=== PATIENT | female | born 1935 | race African-American/Black ===

== ENCOUNTER 2020-09-03 19:57 | Inpatient (IN) | payer MEDICAID, OTHER ==
[~2020-09-03] VITALS: Ht 152.4 cm; Wt 59.9 kg
[2020-09-03] MEDS ORDERED: SODIUM CHLORIDE 0.9% 1000ML BAG (SEPSIS BOLUS) IV ONE (20:30)
[2020-09-03 21:15] LABS: HEMATOCRIT. 35.4 % (36.0-48.0); HEMOGLOBIN. 11.5 g/dL (12.0-16.0); MEAN CORPUSCULAR HEMOGLOBIN 29.4 pg (28.0-32.0); MEAN CORPUSCULAR VOLUME 90.7 fL (81.0-99.0); MEAN PLATELET VOLUME 8.9 fl (7.4-10.4); PLATELET 250 x1000/uL (130-400); RED CELL DISTRIBUTION WIDTH 17.9 % (11.6-14.6)
[2020-09-03 21:20] LABS: CHLORIDE 109 mEq/L (98-107)
[2020-09-03 21:24] LABS: PROTHROMBIN TIME 11.2 sec (9.6-11.0)
[2020-09-03 21:43] LABS: PLATELET ESTIMATE NORMAL
[2020-09-03] MEDS ORDERED: PIPERACILLIN/TAZ 3.375G PREMIX 50 ML IV NR (22:00)
[2020-09-03] MEDS ORDERED: VANCOMYCIN 1 G PREMIX 200 ML IV NR (22:00)
[2020-09-03] MEDS ORDERED: ONDANSETRON HCL 4MG/2ML INJ IV PRN (23:00)
[2020-09-03] MEDS ORDERED: GUAIFENESIN 200MG/10ML SUGAR FREE UDC PO PRN (23:00)
[2020-09-03] MEDS ORDERED: DOCUSATE SODIUM 100MG CAPSULE PO PRN (23:00)
[2020-09-03] MEDS ORDERED: LORAZEPAM 2MG/ML CPJ IV PRN (23:00)
[2020-09-03] MEDS ORDERED: HYDROCODONE/ACETAMINOPHEN 5/325MG TABLET PO PRN (23:00)
[2020-09-03] MEDS ORDERED: DIPHENHYDRAMINE 50MG/ML VIAL IV PRN (23:00)
[2020-09-03] MEDS ORDERED: PIPERACILLIN/TAZ 3.375G PREMIX 50 ML IV SCH (23:00)
[2020-09-03] MEDS ORDERED: MORPHINE SULFATE 2 MG/ML CPJ (NOT FOR IM USE) IV PRN (23:00)
[2020-09-03] MEDS ORDERED: MAGNESIUM/ALUMINUM HYDROXIDE/SIMETHICONE 30ML UDC PO PRN (23:00)
[2020-09-03] MEDS ORDERED: IPRATROPIUM/ALBUTEROL 0.5-3(2.5)MG/3ML NEB HHN PRN (23:00)
[2020-09-03] MEDS ORDERED: ACETAMINOPHEN 650MG SUPP PR NR (23:30)
[2020-09-03 23:36] LABS: CLARITY URINE TURBID (CLEAR); COLOR URINE YELLOW (YELLOW); KETONES URINE NEGATIVE (NEGATIVE); LEUKOCYTE ESTERASE URINE 3+ (NEGATIVE); NITRITE URINE NEGATIVE (NEGATIVE); OCCULT BLOOD URINE 2+ (NEGATIVE); PH URINE 6.5 (4.5-8.0); PROTEIN URINE 2+ (NEGATIVE); SPECIFIC GRAVITY URINE 1.015 (1.005-1.030); UROBILINOGEN URINE 0.2 E.U./dL (0.2-1.0)
[2020-09-03] MEDS: DEXT 5%/0.45% NACL 1000ML 1,000 ML IV SCH (23:48)
[2020-09-03 23:53] LABS: *AMPHETAMINES SCREEN URINE NEGATIVE (NEGATIVE)
[2020-09-03 23:55] LABS: *BARBITURATES SCREEN URINE NEGATIVE (NEGATIVE); *BENZODIAZEPINES SCREEN URINE NEGATIVE (NEGATIVE); *COCAINE SCREEN URINE NEGATIVE (NEGATIVE); CANNABINOID URINE SCREEN NEGATIVE (NEGATIVE); METHADONE URINE SCREEN NEGATIVE (NEGATIVE); OPIATES URINE SCREEN NEGATIVE (NEGATIVE); PHENCYCLIDINE URINE SCREEN NEGATIVE (NEGATIVE)
[2020-09-04] MEDS: HYDRALAZINE 20MG/ML VIAL IV PRN ×2 (00:32→18:38)
[2020-09-04 00:45] VITALS: BP 115/73
[2020-09-04 04:00] VITALS: BP 127/58
[2020-09-04] MEDS ORDERED: PIPERACILLIN/TAZOBACTAM 2.25G in DEXTROSE 5% WATER 50ML IV SCH (06:00)
[2020-09-04] MEDS: PIPERACILLIN/TAZOBACTAM 2.25G in DEXTROSE 5% WATER 50ML IV SCH ×3 (06:02→16:56)
[2020-09-04] MEDS: SODIUM CHLORIDE 0.9% INJ 3ML FLUSH IVF SCH ×3 (06:02→20:23)
[2020-09-04] MEDS ORDERED: METF-414 PO (06:47)
[2020-09-04] MEDS ORDERED: ASPI-1406 PO (06:48)
[2020-09-04] MEDS ORDERED: HYDR-4134 PO (06:48)
[2020-09-04 06:51] LABS: HEMATOCRIT. 34.1 % (36.0-48.0); HEMOGLOBIN. 11.1 g/dL (12.0-16.0); MEAN CORPUSCULAR VOLUME 89.3 fL (81.0-99.0); RED BLOOD CELL COUNT 3.82 mill/uL (4.2-5.4); RED CELL DISTRIBUTION WIDTH 17.1 % (11.6-14.6)
[2020-09-04] MEDS ORDERED: PNEUMOCOCCAL 23-VAL P-SAC VAC 0.5 ML IM ONE (07:15)
[2020-09-04 07:25] LABS: CHLORIDE 109 mEq/L (98-107)
[2020-09-04 08:00] VITALS: BP 172/74
[2020-09-04] MEDS: ENOXAPARIN 30MG/0.3ML SYR SUBCUT SCH (09:28)
[2020-09-04 09:57] LABS: T4 FREE 1.18 ng/dL (0.76-1.46)
[2020-09-04 12:00] VITALS: BP 160/83
[2020-09-04 12:23] LABS: PLATELET ESTIMATE NORMAL
[2020-09-04 12:24] LABS: PLATELET 235 x1000/uL (130-400)
[2020-09-04] MEDS ORDERED: NALOXONE HCL 0.4MG/ML VIAL IV PRN (15:15)
[2020-09-04 16:00] VITALS: BP 181/82
[2020-09-04 17:49] LABS: CREATINE KINASE 81 IU/L (26-192); CREATINE KINASE MB FRACTION < 1.0 ng/mL (0.5-3.6)
[2020-09-04] MEDS: VANCOMYCIN 750 MG PREMIX 150 ML IV SCH (18:38)
[2020-09-04 20:00] VITALS: BP 196/81
[2020-09-04] MEDS: CLONIDINE 0.1MG TABLET PO PRN (21:18)
[2020-09-04] MEDS: ACETAMINOPHEN 325MG TABLET PO PRN (22:45)
[2020-09-04 23:38] LABS: CREATINE KINASE 72 IU/L (26-192)
[2020-09-04 23:39] LABS: CREATINE KINASE MB FRACTION < 1.0 ng/mL (0.5-3.6)
[2020-09-05] VITALS (7 sets, daily range): BP systolic 120–189; BP diastolic 63–90
[2020-09-05] MEDS: PIPERACILLIN/TAZOBACTAM 2.25G in DEXTROSE 5% WATER 50ML IV SCH ×5 (00:13→23:46)
[2020-09-05] MEDS: SODIUM CHLORIDE 0.9% INJ 3ML FLUSH IVF SCH ×3 (05:10→22:45)
[2020-09-05 06:22] LABS: CREATINE KINASE 126 IU/L (26-192); CREATINE KINASE MB FRACTION < 1.0 ng/mL (0.5-3.6)
[2020-09-05 08:40] LABS: BG BASE EXCESS -3.2 mmol/L (-2.0-2.0); BG CARBOXYHEMOGLOBIN 0.3 % (0.5-1.5); BG DEOXYHEMOGLOBIN 5.2 % (0.0-5.0); BG HCO3 ACT 19.4 mmol/L (22.0-26.0); BG METHEMOGLOBIN 0.3 % (0.0-1.5); BG OXYGEN SATURATION 94.8 % (92.0-98.5); BG OXYHEMOGLOBIN 94.2 % (94.0-97.0); BG PCO2 27.6 mmHg (35.0-45.0); BG PH 7.465 (7.350-7.450); BG PO2 71.3 mmHg (75.0-100.0); BG SAMPLE SITE RIGHT RADIAL; BG TOTAL HEMOGLOBIN 11.3 g/dL (12.0-18.0); BG VENT MODE ROOM AIR
[2020-09-05] MEDS: ENOXAPARIN 30MG/0.3ML SYR SUBCUT SCH (10:00)
[2020-09-05] MEDS: DEXT 5%/0.45% NACL 1000ML 1,000 ML IV SCH (10:00)
[2020-09-05] MEDS: HYDRALAZINE 20MG/ML VIAL IV PRN (16:43)
[2020-09-05] MEDS ORDERED: ACETAMINOPHEN 650MG/20.3ML UDC PO PRN (17:00)
[2020-09-05] MEDS: VANCOMYCIN 750 MG PREMIX 150 ML IV SCH (17:18)
[2020-09-05] MEDS ORDERED: ACETAMINOPHEN 650MG SUPP PR PRN (17:45)
[2020-09-05] MEDS: CLONIDINE 0.1MG TABLET PO PRN (21:30)
[2020-09-05] MEDS: ACETAMINOPHEN 325MG TABLET PO PRN (22:44)
[2020-09-06] VITALS: BP 123/57
[2020-09-06 04:00] VITALS: BP 149/65
[2020-09-06] MEDS: SODIUM CHLORIDE 0.9% INJ 3ML FLUSH IVF SCH ×3 (05:52→22:00)
[2020-09-06] MEDS: PIPERACILLIN/TAZOBACTAM 2.25G in DEXTROSE 5% WATER 50ML IV SCH ×4 (05:52→23:39)
[2020-09-06 08:00] VITALS: BP 169/84
[2020-09-06] MEDS: ENOXAPARIN 30MG/0.3ML SYR SUBCUT SCH (08:32)
[2020-09-06] MEDS: HYDRALAZINE 20MG/ML VIAL IV PRN ×2 (10:06→17:10)
[2020-09-06 10:41] LABS: BASOPHILS % 0.1 % (0.0-2.0); EOSINOPHILS % 0.1 % (0.0-5.0); HEMATOCRIT. 30.8 % (36.0-48.0); HEMOGLOBIN. 10.6 g/dL (12.0-16.0); LYMPHOCYTES % 23.8 % (20.0-50.0); MEAN CORPUSCULAR HEMOGLOBIN 29.9 pg (28.0-32.0); MEAN CORPUSCULAR VOLUME 87.2 fL (81.0-99.0); MONOCYTES % 9.2 % (2.0-8.0); NEUTROPHILS % 66.8 % (40.0-76.0); PLATELET 206 x1000/uL (130-400); RED BLOOD CELL COUNT 3.53 mill/uL (4.2-5.4); RED CELL DISTRIBUTION WIDTH 16.7 % (11.6-14.6)
[2020-09-06 11:12] LABS: CHLORIDE 104 mEq/L (98-107)
[2020-09-06 12:00] VITALS: BP 155/58
[2020-09-06] MEDS: DEXT 5%/0.45% NACL 1000ML 1,000 ML IV SCH ×2 (12:39→12:40)
[2020-09-06] MEDS ORDERED: POTASSIUM CHLORIDE INJ 40 MEQ in DEXT 5% WATER 250 ML IV NR (15:30)
[2020-09-06 16:00] VITALS: BP 165/73
[2020-09-06] MEDS: VANCOMYCIN 500 MG PREMIX 100 ML IV SCH (17:45)
[2020-09-06 20:00] VITALS: BP 186/84
[2020-09-06] MEDS: ACETAMINOPHEN 325MG TABLET PO PRN (20:49)
[2020-09-06] MEDS: CLONIDINE 0.1MG TABLET PO PRN (20:50)
[2020-09-07] VITALS: BP 127/71
[2020-09-07 04:00] VITALS: BP 144/74
[2020-09-07] MEDS: SODIUM CHLORIDE 0.9% INJ 3ML FLUSH IVF SCH ×3 (05:03→21:08)
[2020-09-07] MEDS: PIPERACILLIN/TAZOBACTAM 2.25G in DEXTROSE 5% WATER 50ML IV SCH ×3 (05:03→17:11)
[2020-09-07] MEDS: VANCOMYCIN 500 MG PREMIX 100 ML IV SCH (05:27)
[2020-09-07 08:00] VITALS: BP 146/67
[2020-09-07] MEDS: ASCORBIC ACID 500 MG TABLET PO SCH (08:39)
[2020-09-07] MEDS: ENOXAPARIN 30MG/0.3ML SYR SUBCUT SCH (08:39)
[2020-09-07] MEDS: ZINC SULFATE 220 MG ( 50 ) CAPSULE PO SCH (08:39)
[2020-09-07] MEDS: DEXT 5%/0.45% NACL 1000ML 1,000 ML IV SCH (08:39)
[2020-09-07 09:43] LABS: CHLORIDE 106 mEq/L (98-107)
[2020-09-07 09:46] LABS: BASOPHILS % 0.2 % (0.0-2.0); EOSINOPHILS % 0.1 % (0.0-5.0); HEMOGLOBIN. 10.3 g/dL (12.0-16.0); LYMPHOCYTES % 19.9 % (20.0-50.0); MEAN CORPUSCULAR HEMOGLOBIN 29.5 pg (28.0-32.0); MONOCYTES % 6.2 % (2.0-8.0); NEUTROPHILS % 73.6 % (40.0-76.0); PLATELET 213 x1000/uL (130-400); RED BLOOD CELL COUNT 3.48 mill/uL (4.2-5.4); RED CELL DISTRIBUTION WIDTH 16.7 % (11.6-14.6)
[2020-09-07 11:53] VITALS: BP 146/67
[2020-09-07] MEDS ORDERED: POTASSIUM CHLORIDE INJ 40 MEQ in DEXT 5% WATER 250 ML IV NR (13:00)
[2020-09-07 16:00] VITALS: BP 139/86
[2020-09-07 20:00] VITALS: BP 172/81
[2020-09-07] MEDS: CLONIDINE 0.1MG TABLET PO PRN (21:08)
[2020-09-07] MEDS: ACETAMINOPHEN 325MG TABLET PO PRN (21:10)
[2020-09-08 00:15] VITALS: BP 153/64
[2020-09-08] MEDS: PIPERACILLIN/TAZOBACTAM 2.25G in DEXTROSE 5% WATER 50ML IV SCH ×4 (01:08→19:49)
[2020-09-08 04:00] VITALS: BP 155/68
[2020-09-08 04:37] LABS: CHLORIDE 105 mEq/L (98-107)
[2020-09-08 04:44] LABS: BASOPHILS % 0.2 % (0.0-2.0); HEMATOCRIT. 32.9 % (36.0-48.0); MEAN CORPUSCULAR HEMOGLOBIN 29.5 pg (28.0-32.0); MEAN CORPUSCULAR VOLUME 88.1 fL (81.0-99.0); MEAN PLATELET VOLUME 9.1 fl (7.4-10.4); MONOCYTES % 6.7 % (2.0-8.0); NEUTROPHILS % 76.1 % (40.0-76.0); PLATELET 174 x1000/uL (130-400); RED BLOOD CELL COUNT 3.74 mill/uL (4.2-5.4)
[2020-09-08 04:45] LABS: VANCOMYCIN TROUGH 6.5 ug/mL (5.0-10.0)
[2020-09-08] MEDS: VANCOMYCIN 500 MG PREMIX 100 ML IV SCH ×2 (05:29→17:57)
[2020-09-08] MEDS: SODIUM CHLORIDE 0.9% INJ 3ML FLUSH IVF SCH ×3 (05:29→19:49)
[2020-09-08] MEDS: DEXT 5%/0.45% NACL 1000ML 1,000 ML IV SCH (05:30)
[2020-09-08 08:00] VITALS: BP 179/69
[2020-09-08] MEDS ORDERED: POTASSIUM CHLORIDE INJ 40 MEQ in DEXT 5% WATER 250 ML IV NR (09:00)
[2020-09-08] MEDS: ASCORBIC ACID 500 MG TABLET PO SCH ×2 (09:00→10:02)
[2020-09-08] MEDS: ZINC SULFATE 220 MG ( 50 ) CAPSULE PO SCH ×2 (09:00→10:02)
[2020-09-08] MEDS: ENOXAPARIN 30MG/0.3ML SYR SUBCUT SCH (10:02)
[2020-09-08 12:00] VITALS: BP 159/73
[2020-09-08 16:00] VITALS: BP 168/62
[2020-09-08 20:00] VITALS: BP 115/91
[2020-09-09 00:01] VITALS: BP 108/63
[2020-09-09] MEDS: PIPERACILLIN/TAZOBACTAM 2.25G in DEXTROSE 5% WATER 50ML IV SCH ×4 (01:50→17:14)
[2020-09-09] MEDS: DEXT 5%/0.45% NACL 1000ML 1,000 ML IV SCH ×2 (01:50→18:50)
[2020-09-09 04:00] VITALS: BP 173/96
[2020-09-09] MEDS: HYDRALAZINE 20MG/ML VIAL IV PRN (04:41)
[2020-09-09] MEDS: VANCOMYCIN 500 MG PREMIX 100 ML IV SCH ×2 (05:36→17:52)
[2020-09-09] MEDS: SODIUM CHLORIDE 0.9% INJ 3ML FLUSH IVF SCH ×3 (06:07→20:17)
[2020-09-09 08:00] VITALS: BP 121/58
[2020-09-09] MEDS: ASCORBIC ACID 500 MG TABLET PO SCH ×2 (08:03→08:28)
[2020-09-09] MEDS: ZINC SULFATE 220 MG ( 50 ) CAPSULE PO SCH ×2 (08:03→08:28)
[2020-09-09] MEDS: ENOXAPARIN 30MG/0.3ML SYR SUBCUT SCH (08:04)
[2020-09-09 08:13] LABS: BASOPHILS % 0.2 % (0.0-2.0); HEMOGLOBIN. 10.8 g/dL (12.0-16.0); LYMPHOCYTES % 13.8 % (20.0-50.0); MEAN CORPUSCULAR HEMOGLOBIN 29.2 pg (28.0-32.0); MEAN CORPUSCULAR VOLUME 86.8 fL (81.0-99.0); MEAN PLATELET VOLUME 8.7 fl (7.4-10.4); MONOCYTES % 6.7 % (2.0-8.0); NEUTROPHILS % 79.3 % (40.0-76.0); PLATELET 220 x1000/uL (130-400); RED BLOOD CELL COUNT 3.68 mill/uL (4.2-5.4); RED CELL DISTRIBUTION WIDTH 17.2 % (11.6-14.6)
[2020-09-09 08:50] LABS: CHLORIDE 103 mEq/L (98-107)
[2020-09-09 12:00] VITALS: BP 149/69
[2020-09-09] MEDS ORDERED: POTASSIUM CHLORIDE INJ 60 MEQ in DEXT 5% WATER 500 ML IV SCH (12:00)
[2020-09-09] MEDS ORDERED: MAGNESIUM 2 G PREMIX 50 ML IV NR (13:00)
[2020-09-09] MEDS: METOPROLOL TARTRATE 50MG TABLET PO SCH ×2 (14:07→20:17)
[2020-09-09 16:00] VITALS: BP 152/56
[2020-09-09 20:00] VITALS: BP 155/99
[2020-09-09] MEDS ORDERED: ENOXAPARIN 60MG/0.6ML SYR SUBCUT SCH (21:00)
[2020-09-10 00:11] VITALS: BP 168/93
[2020-09-10 04:00] VITALS: BP 172/91
[2020-09-10] MEDS: HYDRALAZINE 20MG/ML VIAL IV PRN ×2 (05:32→17:47)
[2020-09-10] MEDS: SODIUM CHLORIDE 0.9% INJ 3ML FLUSH IVF SCH ×3 (05:32→20:39)
[2020-09-10 08:00] VITALS: BP 150/60
[2020-09-10] MEDS: ZINC SULFATE 220 MG ( 50 ) CAPSULE PO SCH (08:47)
[2020-09-10] MEDS: DEXT 5%/0.45% NACL 1000ML 1,000 ML IV SCH (08:47)
[2020-09-10] MEDS: ASPIRIN 81MG TABLET PO SCH (08:48)
[2020-09-10] MEDS: ENOXAPARIN 30MG/0.3ML SYR SUBCUT SCH (08:48)
[2020-09-10] MEDS: METOPROLOL TARTRATE 50MG TABLET PO SCH ×2 (08:48→20:39)
[2020-09-10] MEDS: ASCORBIC ACID 500 MG TABLET PO SCH (08:48)
[2020-09-10] MEDS ORDERED: POTASSIUM CHLORIDE INJ 40 MEQ in DEXT 5% WATER 250 ML IV SCH (10:00)
[2020-09-10 10:39] LABS: BASOPHILS % 0.6 % (0.0-2.0); HEMATOCRIT. 32.6 % (36.0-48.0); HEMOGLOBIN. 11.1 g/dL (12.0-16.0); LYMPHOCYTES % 10.4 % (20.0-50.0); MEAN CORPUSCULAR HEMOGLOBIN 29.7 pg (28.0-32.0); MEAN CORPUSCULAR VOLUME 87.3 fL (81.0-99.0); MEAN PLATELET VOLUME 8.7 fl (7.4-10.4); MONOCYTES % 5.6 % (2.0-8.0); NEUTROPHILS % 83.4 % (40.0-76.0); PLATELET 250 x1000/uL (130-400); RED BLOOD CELL COUNT 3.74 mill/uL (4.2-5.4); RED CELL DISTRIBUTION WIDTH 17.1 % (11.6-14.6)
[2020-09-10 12:00] VITALS: BP 142/70
[2020-09-10 12:09] LABS: CHLORIDE 105 mEq/L (98-107)
[2020-09-10] MEDS ORDERED: [UNRECOGNIZED DRUG - REMARK] XX SCH (14:45)
[2020-09-10 16:00] VITALS: BP 166/90
[2020-09-10] MEDS: VANCOMYCIN 500 MG PREMIX 100 ML IV SCH (16:01)
[2020-09-10] MEDS: PIPERACILLIN/TAZOBACTAM 2.25G in DEXTROSE 5% WATER 50ML IV SCH ×2 (17:08→23:27)
[2020-09-10 20:00] VITALS: BP 107/67
[2020-09-11] VITALS: BP 144/72
[2020-09-11 04:00] VITALS: BP 178/111
[2020-09-11] MEDS: PIPERACILLIN/TAZOBACTAM 2.25G in DEXTROSE 5% WATER 50ML IV SCH ×4 (05:25→23:10)
[2020-09-11] MEDS: VANCOMYCIN 500 MG PREMIX 100 ML IV SCH ×2 (05:25→17:14)
[2020-09-11] MEDS: METOPROLOL TARTRATE 50MG TABLET PO SCH ×2 (05:26→20:30)
[2020-09-11] MEDS: HYDRALAZINE 20MG/ML VIAL IV PRN ×2 (05:26→20:30)
[2020-09-11] MEDS: SODIUM CHLORIDE 0.9% INJ 3ML FLUSH IVF SCH ×3 (05:27→20:31)
[2020-09-11 08:00] VITALS: BP 131/66
[2020-09-11] MEDS: ENOXAPARIN 30MG/0.3ML SYR SUBCUT SCH (09:15)
[2020-09-11] MEDS: ASCORBIC ACID 500 MG TABLET PO SCH (09:16)
[2020-09-11] MEDS: ASPIRIN 81MG TABLET PO SCH (09:16)
[2020-09-11] MEDS: ZINC SULFATE 220 MG ( 50 ) CAPSULE PO SCH (09:16)
[2020-09-11 12:00] VITALS: BP 157/84
[2020-09-11] MEDS: DEXT 5%/0.45% NACL 1000ML 1,000 ML IV SCH (12:20)
[2020-09-11] MEDS ORDERED: POTASSIUM CHLORIDE INJ 40 MEQ in DEXT 5% WATER 250 ML IV SCH (13:00)
[2020-09-11 16:00] VITALS: BP 162/92
[2020-09-11 20:20] VITALS: BP 188/93
[2020-09-12 00:33] VITALS: BP 146/68
[2020-09-12 04:00] VITALS: BP 155/77
[2020-09-12] MEDS: VANCOMYCIN 500 MG PREMIX 100 ML IV SCH (05:02)
[2020-09-12] MEDS: PIPERACILLIN/TAZOBACTAM 2.25G in DEXTROSE 5% WATER 50ML IV SCH ×3 (05:02→18:28)
[2020-09-12] MEDS: SODIUM CHLORIDE 0.9% INJ 3ML FLUSH IVF SCH ×3 (05:02→22:27)
[2020-09-12] MEDS: DEXT 5%/0.45% NACL 1000ML 1,000 ML IV SCH (06:36)
[2020-09-12 08:00] VITALS: BP 153/90
[2020-09-12 08:15] LABS: CHLORIDE 105 mEq/L (98-107)
[2020-09-12] MEDS: METOPROLOL TARTRATE 50MG TABLET PO SCH ×3 (09:00→23:32)
[2020-09-12] MEDS: ASPIRIN 81MG TABLET PO SCH (09:27)
[2020-09-12] MEDS: ASCORBIC ACID 500 MG TABLET PO SCH (09:27)
[2020-09-12] MEDS: ENOXAPARIN 30MG/0.3ML SYR SUBCUT SCH (09:27)
[2020-09-12] MEDS: ZINC SULFATE 220 MG ( 50 ) CAPSULE PO SCH (09:27)
[2020-09-12 12:00] VITALS: BP 150/90
[2020-09-12] MEDS: VANCOMYCIN 1250MG in DEXTROSE 5% WATER 250ML IV SCH (13:12)
[2020-09-12 16:15] VITALS: BP 153/78
[2020-09-12 20:00] VITALS: BP 195/80
[2020-09-13] MEDS: PIPERACILLIN/TAZOBACTAM 2.25G in DEXTROSE 5% WATER 50ML IV SCH ×5 (00:06→23:53)
[2020-09-13 00:29] VITALS: BP 165/92
[2020-09-13] MEDS: DEXT 5%/0.45% NACL 1000ML 1,000 ML IV SCH ×2 (03:27→23:52)
[2020-09-13 04:00] VITALS: BP 185/96
[2020-09-13] MEDS: HYDRALAZINE 20MG/ML VIAL IV PRN (05:11)
[2020-09-13] MEDS: SODIUM CHLORIDE 0.9% INJ 3ML FLUSH IVF SCH ×3 (05:12→23:53)
[2020-09-13] MEDS: VANCOMYCIN 1250MG in DEXTROSE 5% WATER 250ML IV SCH (08:52)
[2020-09-13] MEDS: ZINC SULFATE 220 MG ( 50 ) CAPSULE PO SCH (08:52)
[2020-09-13] MEDS: ASPIRIN 81MG TABLET PO SCH (08:52)
[2020-09-13] MEDS: ASCORBIC ACID 500 MG TABLET PO SCH (08:52)
[2020-09-13] MEDS: ENOXAPARIN 30MG/0.3ML SYR SUBCUT SCH (08:53)
[2020-09-13] MEDS: METOPROLOL TARTRATE 50MG TABLET PO SCH ×2 (08:53→20:53)
[2020-09-13] MEDS ORDERED: POTASSIUM CHLORIDE 20MEQ/PACKET PO SCH (10:15)
[2020-09-13 12:00] VITALS: BP 114/87
[2020-09-13] MEDS ORDERED: POTASSIUM CHLORIDE INJ 40 MEQ in DEXT 5% WATER 250 ML IV SCH (12:00)
[2020-09-13 16:00] VITALS: BP 151/91
[2020-09-13 20:00] VITALS: BP 182/99
[2020-09-14] VITALS (19 sets, daily range): BP systolic 61–186; BP diastolic 36–111
[2020-09-14] MEDS: VANCOMYCIN 1250MG in DEXTROSE 5% WATER 250ML IV SCH (01:06)
[2020-09-14] MEDS: PIPERACILLIN/TAZOBACTAM 2.25G in DEXTROSE 5% WATER 50ML IV SCH ×3 (05:13→18:56)
[2020-09-14] MEDS: HYDRALAZINE 20MG/ML VIAL IV PRN (05:18)
[2020-09-14] MEDS: SODIUM CHLORIDE 0.9% INJ 3ML FLUSH IVF SCH ×3 (06:06→21:05)
[2020-09-14 07:32] LABS: HEMATOCRIT. 30.7 % (36.0-48.0); HEMOGLOBIN. 10.3 g/dL (12.0-16.0); MEAN CORPUSCULAR HEMOGLOBIN 28.7 pg (28.0-32.0); MEAN CORPUSCULAR VOLUME 85.7 fL (81.0-99.0); MEAN PLATELET VOLUME 7.9 fl (7.4-10.4); PLATELET 133 x1000/uL (130-400); RED BLOOD CELL COUNT 3.58 mill/uL (4.2-5.4); RED CELL DISTRIBUTION WIDTH 17.4 % (11.6-14.6)
[2020-09-14 07:43] LABS: CHLORIDE 105 mEq/L (98-107)
[2020-09-14] MEDS: METOPROLOL TARTRATE 50MG TABLET PO SCH ×2 (08:51→21:00)
[2020-09-14] MEDS: CLONIDINE 0.1MG TABLET PO PRN (08:51)
[2020-09-14] MEDS: ZINC SULFATE 220 MG ( 50 ) CAPSULE PO SCH (09:00)
[2020-09-14] MEDS: ASPIRIN 81MG TABLET PO SCH (09:00)
[2020-09-14] MEDS: ASCORBIC ACID 500 MG TABLET PO SCH (09:00)
[2020-09-14] MEDS: ENOXAPARIN 30MG/0.3ML SYR SUBCUT SCH (09:00)
[2020-09-14] MEDS: FOLIC ACID 1MG TABLET PO SCH (17:15)
[2020-09-14] MEDS: THIAMINE HCL 100MG TABLET PO SCH (17:15)
[2020-09-14] MEDS: DEXT 5%/0.45% NACL 1000ML 1,000 ML IV SCH (18:57)
[2020-09-14 20:20] LABS: BG BASE EXCESS -3.6 mmol/L (-2.0-2.0); BG CARBOXYHEMOGLOBIN 0.3 % (0.5-1.5); BG DEOXYHEMOGLOBIN 22.8 % (0.0-5.0); BG FRACTION INSPIRED OXYGEN 100; BG HCO3 ACT 23.3 mmol/L (22.0-26.0); BG METHEMOGLOBIN 0.4 % (0.0-1.5); BG OXYHEMOGLOBIN 76.5 % (94.0-97.0); BG PH 7.286 (7.350-7.450); BG PO2 50.8 mmHg (75.0-100.0); BG SAMPLE SITE RIGHT BRACHIAL; BG TOTAL HEMOGLOBIN 11.6 g/dL (12.0-18.0); BG VENT MODE MASK - NRB
[2020-09-14] MEDS ORDERED: IPRATROPIUM/ALBUTEROL 0.5-3(2.5)MG/3ML NEB HHN PRN (21:00)
[2020-09-14 21:09] LABS: PLATELET ESTIMATE NORMAL
[2020-09-14] MEDS: PHENYLEPHRINE 100 MG in DEXT 5% WATER 240 ML IV PRN (21:37)
[2020-09-14] MEDS: ACETYLCYSTEINE 100MG/ML 10% VIAL 4ML INH SCH (22:00)
[2020-09-14] MEDS: FENTANYL CITRATE/PF 2,500 MCG in SODIUM CHLORIDE 0.9% 200 ML IV PRN (22:20)
[2020-09-14 23:01] LABS: PHOSPHORUS 2.4 mg/dL (2.5-4.9)
[2020-09-14] MEDS: MEROPENEM 1,000 MG in SODIUM CHLORIDE 0.9% 100 ML IV SCH (23:34)
[2020-09-15] VITALS (90 sets, daily range): BP systolic 69–153; BP diastolic 34–104
[2020-09-15] MEDS ORDERED: VANCOMYCIN 1 G PREMIX 200 ML IV SCH
[2020-09-15 00:38] LABS: BG BASE EXCESS -4.5 mmol/L (-2.0-2.0); BG CARBOXYHEMOGLOBIN 0.3 % (0.5-1.5); BG DEOXYHEMOGLOBIN 9.1 % (0.0-5.0); BG FRACTION INSPIRED OXYGEN 100; BG HCO3 ACT 19.7 mmol/L (22.0-26.0); BG METHEMOGLOBIN 0.5 % (0.0-1.5); BG OXYGEN SATURATION 90.8 % (92.0-98.5); BG OXYHEMOGLOBIN 90.1 % (94.0-97.0); BG PCO2 33.6 mmHg (35.0-45.0); BG PH 7.387 (7.350-7.450); BG PO2 64.2 mmHg (75.0-100.0); BG SAMPLE SITE RIGHT RADIAL; BG TOTAL RESPIRATORY RATE 38 b/min; BG VENT MODE VENT - AC
[2020-09-15] MEDS: IPRATROPIUM/ALBUTEROL 0.5-3(2.5)MG/3ML NEB HHN SCH ×6 (01:36→20:40)
[2020-09-15] MEDS: SODIUM CHLORIDE 0.9% INJ 3ML FLUSH IVF SCH (05:28)
[2020-09-15] MEDS: ACETYLCYSTEINE 100MG/ML 10% VIAL 4ML INH SCH ×2 (08:29→16:24)
[2020-09-15] MEDS: MEROPENEM 1,000 MG in SODIUM CHLORIDE 0.9% 100 ML IV SCH ×2 (08:39→17:51)
[2020-09-15 08:40] LABS: BG CARBOXYHEMOGLOBIN 0.3 % (0.5-1.5); BG DEOXYHEMOGLOBIN 11.5 % (0.0-5.0); BG FRACTION INSPIRED OXYGEN 100; BG METHEMOGLOBIN 0.1 % (0.0-1.5); BG OXYGEN SATURATION 88.5 % (92.0-98.5); BG OXYHEMOGLOBIN 88.1 % (94.0-97.0); BG PCO2 41.6 mmHg (35.0-45.0); BG PH 7.229 (7.350-7.450); BG PO2 65.4 mmHg (75.0-100.0); BG SAMPLE SITE RIGHT RADIAL; BG VENT MODE VENT - AC
[2020-09-15] MEDS: PHENYLEPHRINE 100 MG in DEXT 5% WATER 240 ML IV PRN ×2 (08:49→18:31)
[2020-09-15] MEDS ORDERED: LIDOCAINE HCL 1% 20ML VIAL (Pyxis) INJ ONE (08:56)
[2020-09-15] MEDS: METOPROLOL TARTRATE 50MG TABLET PO SCH (09:00)
[2020-09-15 09:30] LABS: HEMATOCRIT. 28.7 % (36.0-48.0); HEMOGLOBIN. 9.3 g/dL (12.0-16.0); MEAN CORPUSCULAR HEMOGLOBIN 30.1 pg (28.0-32.0); MEAN CORPUSCULAR VOLUME 93.3 fL (81.0-99.0); MEAN PLATELET VOLUME 9.7 fl (7.4-10.4); RED BLOOD CELL COUNT 3.08 mill/uL (4.2-5.4); RED CELL DISTRIBUTION WIDTH 18.9 % (11.6-14.6)
[2020-09-15] MEDS ORDERED: PANTOPRAZOLE SODIUM 40 MG/VIAL IV SCH ×2 (09:30→21:00)
[2020-09-15] MEDS ORDERED: NOREPINEPHRINE 8MG/250ML PMX 250 ML IV ONE (09:30)
[2020-09-15] MEDS ORDERED: NOREPINEPHRINE 8 MG in DEXTROSE 5% WATER 250 ML IV PRN (09:30)
[2020-09-15] MEDS: ZINC SULFATE 220 MG ( 50 ) CAPSULE PO SCH (09:43)
[2020-09-15] MEDS: FOLIC ACID 1MG TABLET PO SCH (09:43)
[2020-09-15] MEDS: ASPIRIN 81MG TABLET PO SCH (09:43)
[2020-09-15] MEDS: ENOXAPARIN 30MG/0.3ML SYR SUBCUT SCH ×2 (09:43→11:14)
[2020-09-15] MEDS: ASCORBIC ACID 500 MG TABLET PO SCH (09:43)
[2020-09-15] MEDS: THIAMINE HCL 100MG TABLET PO SCH (09:44)
[2020-09-15] MEDS ORDERED: SODIUM BICARBONATE 8.4% 1 MEQ/ML 50ML SYR IV NR (10:00)
[2020-09-15] MEDS ORDERED: SODIUM CHLORIDE 0.9% 500 ML IV NR (10:00)
[2020-09-15 10:02] LABS: PLATELET 39 x1000/uL (130-400)
[2020-09-15 11:45] LABS: NUCLEATED RED BLOOD CELLS 1 /100 WBC; PLATELET ESTIMATE MARKEDLY DECREASED
[2020-09-15] MEDS: VASOPRESSIN 20 UNIT in SODIUM CHLORIDE 0.9% 99 ML IV PRN (11:45)
[2020-09-15] MEDS ORDERED: POTASSIUM CHLORIDE INJ 40 MEQ in DEXT 5% WATER 250 ML IV SCH (12:00)
[2020-09-15] MEDS: DEXT 5%/0.45% NACL 1000ML 1,000 ML IV SCH (15:52)
[2020-09-15] MEDS: MEROPENEM 1000MG in NORMAL SALINE 100ML IV SCH (17:53)
[2020-09-15 22:00] LABS: INR 2.1; PROTHROMBIN TIME 21.2 sec (9.6-11.0)
[2020-09-15] MEDS: FENTANYL CITRATE/PF 2,500 MCG in SODIUM CHLORIDE 0.9% 200 ML IV PRN (23:11)
[2020-09-16] VITALS (57 sets, daily range): BP systolic 88–131; BP diastolic 22–74
[2020-09-16] MEDS: ACETAMINOPHEN 325MG TABLET PO PRN (00:59)
[2020-09-16] MEDS: PHENYLEPHRINE 100 MG in DEXT 5% WATER 240 ML IV PRN ×3 (04:09→23:50)
[2020-09-16] MEDS: MEROPENEM 1000MG in NORMAL SALINE 100ML IV SCH ×2 (05:27→17:57)
[2020-09-16 08:02] LABS: BG BASE EXCESS -8.2 mmol/L (-2.0-2.0); BG DEOXYHEMOGLOBIN 4.8 % (0.0-5.0); BG HCO3 ACT 18.1 mmol/L (22.0-26.0); BG METHEMOGLOBIN 0.3 % (0.0-1.5); BG OXYGEN SATURATION 95.2 % (92.0-98.5); BG OXYHEMOGLOBIN 94.9 % (94.0-97.0); BG PCO2 40.8 mmHg (35.0-45.0); BG PH 7.266 (7.350-7.450); BG PO2 92.7 mmHg (75.0-100.0); BG SAMPLE SITE RIGHT RADIAL; BG TOTAL HEMOGLOBIN 7.7 g/dL (12.0-18.0); BG VENT MODE VENT - AC
[2020-09-16] MEDS ORDERED: SODIUM POLYSTYRENE SULFONATE 15 G/60 ML BOT PO SCH (08:45)
[2020-09-16] MEDS: ACETYLCYSTEINE 100MG/ML 10% VIAL 4ML INH SCH ×2 (08:56→16:10)
[2020-09-16] MEDS: IPRATROPIUM/ALBUTEROL 0.5-3(2.5)MG/3ML NEB HHN SCH ×4 (08:56→20:52)
[2020-09-16] MEDS: FOLIC ACID 1MG TABLET PO SCH (09:25)
[2020-09-16] MEDS: ZINC SULFATE 220 MG ( 50 ) CAPSULE PO SCH (09:25)
[2020-09-16] MEDS: THIAMINE HCL 100MG TABLET PO SCH (09:26)
[2020-09-16] MEDS: ASPIRIN 81MG TABLET PO SCH (09:26)
[2020-09-16] MEDS: ASCORBIC ACID 500 MG TABLET PO SCH (09:26)
[2020-09-16 10:28] LABS: HEMATOCRIT. 22.4 % (36.0-48.0); HEMOGLOBIN. 7.5 g/dL (12.0-16.0); MEAN CORPUSCULAR VOLUME 92.3 fL (81.0-99.0); MEAN PLATELET VOLUME 9.5 fl (7.4-10.4); RED BLOOD CELL COUNT 2.43 mill/uL (4.2-5.4); RED CELL DISTRIBUTION WIDTH 18.5 % (11.6-14.6)
[2020-09-16 10:37] LABS: PLATELET 21 x1000/uL (130-400)
[2020-09-16] MEDS ORDERED: SODIUM BICARBONATE 8.4% 1 MEQ/ML 50ML SYR IV NR (11:15)
[2020-09-16] MEDS: DEXT 5%/0.45% NACL 1000ML 1,000 ML IV SCH (11:30)
[2020-09-16 17:40] LABS: NUCLEATED RED BLOOD CELLS 1 /100 WBC; PLATELET ESTIMATE MARKEDLY DECREASED
[2020-09-16] MEDS: VASOPRESSIN 20 UNIT in SODIUM CHLORIDE 0.9% 99 ML IV PRN (23:20)
[2020-09-17] VITALS (34 sets, daily range): BP systolic 40–139; BP diastolic 26–82
[2020-09-17] MEDS: IPRATROPIUM/ALBUTEROL 0.5-3(2.5)MG/3ML NEB HHN SCH ×2 (00:03→03:52)
[2020-09-17] MEDS: ACETYLCYSTEINE 100MG/ML 10% VIAL 4ML INH SCH (00:04)
[2020-09-17 05:48] LABS: HEMATOCRIT. 22.4 % (36.0-48.0); MEAN CORPUSCULAR VOLUME 99.4 fL (81.0-99.0); MEAN PLATELET VOLUME 10.2 fl (7.4-10.4); RED BLOOD CELL COUNT 2.26 mill/uL (4.2-5.4); RED CELL DISTRIBUTION WIDTH 20.8 % (11.6-14.6)
[2020-09-17] MEDS ORDERED: DEXTROSE 50% WATER 50ML SYRINGE IV ONE ×4 (06:11→08:31)
[2020-09-17] MEDS: MEROPENEM 1000MG in NORMAL SALINE 100ML IV SCH (06:12)
[2020-09-17] MEDS ORDERED: ALBUTEROL (0.083%) 2.5MG/3ML NEB ONE (06:15)
[2020-09-17] MEDS ORDERED: SODIUM POLYSTYRENE SULFONATE 15 G/60 ML BOT PO NR ×2 (06:30→08:00)
[2020-09-17] MEDS ORDERED: SODIUM BICARBONATE 8.4% 1 MEQ/ML 50ML SYR IV ONE ×3 (06:30→08:31)
[2020-09-17 06:32] LABS: HEMOGLOBIN. 6.8 g/dL (12.0-16.0)
[2020-09-17] MEDS ORDERED: SODIUM BICARBONATE 100 MEQ in DEXTROSE 5% WATER 1,000 ML IV SCH (06:45)
[2020-09-17 06:49] LABS: PROTHROMBIN TIME 40.6 sec (9.6-11.0)
[2020-09-17 06:51] LABS: D-DIMER > 35.20 mg/L FEU (<0.50); INR 4.2
[2020-09-17] MEDS ORDERED: DOPAMINE 400MG/250ML PREMIX 250 ML IV PRN (07:45)
[2020-09-17] MEDS: DEXT 5%/0.45% NACL 1000ML 1,000 ML IV SCH (07:52)
[2020-09-17] MEDS ORDERED: SODIUM BICARBONATE 8.4% 1 MEQ/ML 50ML SYR IV NR (07:57)
[2020-09-17] MEDS ORDERED: DEXTROSE 50% WATER 50ML SYRINGE IV NR (07:57)
[2020-09-17] MEDS ORDERED: INSULIN REGULAR (HUMULIN R) 300UNITS/3ML VIAL IV NR (07:57)
[2020-09-17] MEDS ORDERED: EPINEPHRINE 10 MG in SODIUM CHLORIDE 0.9% 240 ML IV PRN (08:15)
[2020-09-17] MEDS ORDERED: CALCIUM CHLORIDE 1GM/10ML SYR IV ONE ×2 (08:18→08:31)
[2020-09-17] MEDS ORDERED: EPINEPHRINE 0.1MG/ML (1:10,000) 10ML SYR ONE ×2 (08:18→08:31)
[2020-09-17 09:41] LABS: BG FRACTION INSPIRED OXYGEN 100; BG HCO3 ACT 9.4 mmol/L (22.0-26.0); BG PCO2 38.8 mmHg (35.0-45.0); BG PH 7.004 (7.350-7.450); BG PO2 79.2 mmHg (75.0-100.0); BG SAMPLE SITE LEFT BRACHIAL; BG TOTAL HEMOGLOBIN < 4.5 g/dL (12.0-18.0); BG VENT MODE VENT - AC
[2020-09-17] MEDS ORDERED: CALCIUM GLUCONATE 100MG/ML 10ML VIAL IV NR (10:00)
[2020-09-17 12:13] LABS: NUCLEATED RED BLOOD CELLS 2 /100 WBC; PLATELET ESTIMATE MARKEDLY DECREASED
[2020-09-17 12:14] LABS: PLATELET 15 x1000/uL (130-400)
== END 2020-09-17 10:30 | DRG 720 ==
LOC: ER 19:57 → 7WST 22:45 → EDBEDREQTM 22:53 → EDBEDREQ 22:53 → EDBEDREQSVC 22:53 → ENRESERV 23:08 → MICUSO 09-14 20:55
PROVIDERS: ADMIT Internal Medicine; ATTEND Internal Medicine
PROC: 5A1945Z Respiratory Ventilation, 24-96 Consecutive Hours (ICD-10-PCS; 2020-09-14)
PROC: 0BH17EZ Insertion of Endotracheal Airway into Trachea, Via Natural or Artificial Opening (ICD-10-PCS; 2020-09-14)
PROC: 02HV33Z Insertion of Infusion Device into Superior Vena Cava, Percutaneous Approach (ICD-10-PCS; 2020-09-15)
PROC: B548ZZA Ultrasonography of Superior Vena Cava, Guidance (ICD-10-PCS; 2020-09-15)
PROC: 5A12012 Performance of Cardiac Output, Single, Manual (ICD-10-PCS; principal; 2020-09-17)
DX: A41.89 Other specified sepsis (principal); U07.1 COVID-19; J69.0 Pneumonitis due to inhalation of food and vomit; N17.0 Acute kidney failure with tubular necrosis; J96.01 Acute respiratory failure with hypoxia; R65.21 Severe sepsis with septic shock; L89.159 Pressure ulcer of sacral region, unspecified stage; G91.9 Hydrocephalus, unspecified; G93.41 Metabolic encephalopathy; J12.82 Pneumonia due to coronavirus disease 2019; E87.2 Acidosis; E46 Unspecified protein-calorie malnutrition; E11.9 Type 2 diabetes mellitus without complications; D64.9 Anemia, unspecified; E78.5 Hyperlipidemia, unspecified; I10 Essential (primary) hypertension; J44.0 Chronic obstructive pulmonary disease with (acute) lower respiratory infection; N39.0 Urinary tract infection, site not specified; E87.5 Hyperkalemia; I46.9 Cardiac arrest, cause unspecified; D69.6 Thrombocytopenia, unspecified; I48.20 Chronic atrial fibrillation, unspecified; D68.9 Coagulation defect, unspecified; R13.10 Dysphagia, unspecified; I69.398 Other sequelae of cerebral infarction; Z78.9 Other specified health status; Z86.718 Personal history of other venous thrombosis and embolism; Z87.440 Personal history of urinary (tract) infections; Z68.25 Body mass index [BMI] 25.0-25.9, adult; Z79.01 Long term (current) use of anticoagulants
CPT/HCPCS: 36415; 36600; 71045; 76770; 76937; 80048; 80053; 80061; 80076; 80202; 80305; 81003; 82375; 82550; 82553; 82728; 82805; 82962; 83036; 83605; 83615; 83735; 83880; 84100; 84132; 84145; 84439; 84443; 84484; 85025; 85379; 85384; 85651; 86140; 87070; 87077; 87106; 87186; 90732; 92610; 92950; 93005; 93970; 94003; 94640; 94667; 97162; 99291; C1725; C9113; J0360; J0610; J1265; J1650; J2185; J2370; J2543; J3010; J3370; J3475; J3480; J3490; J7030; J7040; J7042; J7050; J7060; J7070; J7608; U0003; U0005